=== PATIENT | female | born 1940 | race Caucasian/White ===

== ENCOUNTER 2017-08-20 13:24 | Observation (INO) ==
[2017-08-20] MEDS ORDERED: predniSONE 20 MG TABLET PO ONE (13:34)
[2017-08-20] MEDS ORDERED: Ipratropium/Albuterol Neb 3 ML IH ONE (13:34)
--- NOTE | 2017-08-20 14:13 | Emergency Department Note ---
Disposition Clinical Impression: Generalized weakness, Dehydration, Acute exacerbation of chronic obstructive airways disease Benzodiazepine withdrawal Qualifiers: Complication of substance-induced condition: with unspecified complication Qualified Code(s): F13.239 - Sedative, hypnotic or anxiolytic dependence with withdrawal, unspecified Disposition: Admitted As Inpatient Condition: Fair Time of Disposition: 16:10 SOB HPI - General Chief Complaint: ED Shortness of Breath/Dyspnea Stated Complaint: rudy Time Seen by Provider: 08/20/17 14:10 Source: family, EMS Limitations: no limitations Nursing Notes Reviewed: Yes Vital Signs Reviewed: Yes - History of Present Illness 76-year-old female history of COPD, presents complaining of generalized weakness shortness of breath nausea with some emesis in the last couple days. Her son is her historian she is alert and oriented 3 and give some history, she reports some productive cough some urinary frequency. Patient states that she has had increased confusion, is more shaky. Patient is oxygen dependent at baseline on 3 L stage IV end-stage COPD Pt Subjective Complaint: shortness of breath Onset (ago): day(s) (3) Severity: moderate Consistency/Duration: intermittent Improves with: nothing Worsens with: nothing Associated symptoms: Denies: chest pain, pain with inspiration, fever, cough, wheezing, sputum production, orthopnea, polyuria Treatment prior to arrival: none Cough present: No Cough Frequency: Intermittent Sputum production: Yes Sputum Amount: None - Related Data Home Medications Medication Instructions Recorded Confirmed Ergocalciferol (VITAMIN D2) 50,000 unit PO SA 07/04/15 08/20/17 [Vitamin D2] HYDROcodone/Acet 5/325 mg [[place] 1 tab PO Q6H PRN 07/04/15 08/20/17 5-325 mg] Sertraline [Zoloft] 50 mg PO DAILY 07/04/15 08/20/17 Umeclidinium [place] [Incruse 62.5 mcg IH DAILY 07/04/15 08/20/17 Ellipta] Albuterol Sulfate [Albuterol 2 puff IH Q4H PRN 08/20/17 08/20/17 Inhaler] Calcitonin,[place],Synthetic 1 spray NS DAILY 08/20/17 08/20/17 [Calcitonin-[place]] Fluticasone Propionate Nasal 50 mcg NS DAILY PRN 08/20/17 08/20/17 [Flonase] Fluticasone/Vilanterol [Breo 1 each IH DAILY 08/20/17 08/20/17 Ellipta 200-25 Mcg INH] HydrOXYzine 10 mg PO TID PRN 08/20/17 08/20/17 Meloxicam [Mobic] 7.5 mg PO DAILY 08/20/17 08/20/17 Omeprazole [PriLOSEC] 20 mg PO DAILY 08/20/17 08/20/17 Oxygen 4 l NS AD 08/20/17 08/20/17 Theophylline Anhydrous [[place]-24] 100 mg PO DAILY 08/20/17 08/20/17 Allergies Allergy/AdvReac Type Severity Reaction Status Date / Time No Known Allergies Allergy Verified 07/04/15 14:51 All systems ED: reviewed and negative except as stated. Review of Systems: As Per HPI Constitutional: Reports: weakness. Denies: fever, chills Eyes: Denies: eye pain ENT ED: Denies: ear pain Cardiovascular: Denies: chest pain Respiratory: Reports: as per HPI, cough, dyspnea. Denies: wheezes Gastrointestinal: Denies: abdominal pain, nausea, vomiting Genitourinary: Reports: as per HPI, frequency Musculoskeletal: Denies: back pain, neck pain Integumentary: Denies: rash Neurological: Denies: headache, weakness, numbness, paresthesias Past Medical History - Past Medical History Attestation: Yes The following information was validated with the patient. Source: patient Medical history: Reports: COPD Psychiatric history: Reports: anxiety - Social History Smoking Status: Former smoker Smokeless Tobacco Status: No Alcohol use: Reports: none Drug use: Reports: none Physical Exam Constitutional: Shaky thin and frail cachectic elderly female, mildly tachypneic appears in mild respiratory distress Eyes: PERRLA, sclera anicteric ENT & Mouth: M membranes dry Neck: normal inspection, neck is supple Resp: Prolonged expiratory phase, diminished lung sounds bilaterally, tachypneic CV: RRR, no m/g/r GI: normal inspection, soft, no guarding or rigidity Neuro: A&O3, CNII-XII grossly intact, BELLE Skin: on limited exam, skin intact with no rashes or lesions - General Limitations: no limitations General appearance: alert, in no apparent distress Course Course Narrative: 76-year-old with shortness of breath weakness, concern for possible sepsis, she is mildly tachycardic, will check full septic workup including CBC BMP blood cultures lactate, given 3 duo nebs and oral steroids, plan for admission given the patient's tenuous status and concerning symptoms including altered mental state elderly cachectic appearing, will reassess - Reevaluation(s) Reevaluation #1: Additional history from the family who is at bedside, they state that she is recently weaned off Ativan 4 days ago, given some element of delirium and agitation, we will give 0.5 IV of Ativan, also a 500 mL of fluid, patient's labwork and imaging was essentially negative, likely she is dehydration and acute altered mental status, and possible benzodiazepine withdrawal, plan for admission to hospital service [facility] nurse practitioner accepted the patient. Time: 16:20 Vital Signs Temperature 98.3 F 08/20/17 13:27 Pulse Rate 95 08/20/17 13:27 Respiratory Rate 16 08/20/17 13:27 Blood Pressure 157/99 08/20/17 13:27 O2 Sat by Pulse Oximetry 86 08/20/17 13:27 Temperature 98.3 F 08/20/17 13:27 Pulse Rate 100 08/20/17 16:32 Respiratory Rate 22 08/20/17 16:32 Blood Pressure 128/75 08/20/17 16:32 O2 Sat by Pulse Oximetry 93 08/20/17 16:32 Oxygen Delivery Oxygen Delivery Simple Mask Shortness of Breath/Dyspnea - Differential Diagnosis Likely: acute exacerbation of chronic obstructive airways disease, congestive heart failure - Medical Records Medical records reviewed: Yes I reviewed the patient's medical records. - Lab Data Lab results reviewed: Yes I reviewed the patient's lab results. Result diagrams: 08/20/17 13:59 08/20/17 13:59 Lab Results 08/20/17 08/20/17 08/20/17 Range/Units 13:59 13:59 13:59 WBC 5.8 (4.3-11.1) K/mcL RBC 3.95 (3.82-4.97) M/mcL Hgb 12.2 (11.5-15.4) g/dL Hct 37.9 (35.3-44.9) % MCV 95.9 (83.0-100.0) fL MCH 30.9 (28.0-33.3) pg MCHC 32.2 (31.6-35.5) g/dL RDW 13.2 (11.5-14.5) % Plt Count 192 (140-400) K/mcL MPV 10.2 (9.4-12.4) fL Immature Gran % 0.2 (0-4) % Seg Neutrophils % 73.2 % Lymphocytes % 19.3 % Monocytes % 6.7 % Eosinophils % 0.3 % Basophils % 0.3 % Neutrophils # 4.2 (1.6-8.9) K/mcL Lymphocytes # 1.1 (0.6-4.6) K/mcL Monocytes # 0.4 (0.0-1.3) K/mcL Eosinophils # 0.0 (0.0-0.6) K/mcL Basophils # 0.0 (0.0-0.2) K/mcL PT 11.0 (9.4-12.1) Seconds INR 1.0 Sodium 136 (136-145) mEq/L Potassium 4.4 (3.5-4.5) mEq/L Chloride 94 L (98-109) mEq/L Carbon Dioxide 34 H (19-29) mEq/L BUN 15 (7-20) mg/dL Creatinine 0.79 (0.57-1.11) mg/dL Est GFR ( Amer) > 60 (> 60) Est GFR (Non-Af Amer) > 60 (> 60) BUN/Creatinine Ratio 19 (6-26) Glucose 88 (70-99) mg/dL Calculated Osmolality 282 (280-300) Lactic Acid (0.5-2.2) mmol/L Calcium 10.4 (8.6-10.8) mg/dL Phosphorus 2.6 (2.3-4.7) mg/dL Magnesium 1.6 (1.6-2.6) mg/dL Total Bilirubin 0.6 (0.2-1.2) mg/dL Direct Bilirubin 0.3 (0.0-0.5) mg/dL Indirect Bilirubin 0.3 (0.0-1.2) mg/dL AST 42 H (5-34) Units/L ALT 19 (0-55) Units/L Alkaline Phosphatase 74 (38-126) Units/L Troponin I (0-0.03) ng/mL B-Natriuretic Peptide (0-100) pg/mL Serum Total Protein 8.5 H (6.0-8.3) g/dL Albumin 3.9 (3.5-5.0) g/dL Globulin 4.6 H (2.4-3.5) g/dL Albumin/Globulin Ratio 0.8 L (1.1-2.2) Urine Color (Yellow) Urine Clarity (Clear) Urine pH (5.0-8.0) pH Units Ur Specific [place] (1.010-1.025) Urine Protein (Neg-Trace) mg/dL Urine Glucose (UA) (Normal) mg/dL Urine Ketones (Negative) mg/dL Urine Blood (Negative) Urine Nitrite (Negative) Urine Bilirubin (Negative) Urine Urobilinogen (Normal) mg/dL Ur Leukocyte Esterase (Negative) Ur Culture Indicated? (NO) 08/20/17 08/20/17 08/20/17 Range/Units 13:59 13:59 13:59 WBC (4.3-11.1) K/mcL RBC (3.82-4.97) M/mcL Hgb (11.5-15.4) g/dL Hct (35.3-44.9) % MCV (83.0-100.0) fL MCH (28.0-33.3) pg MCHC (31.6-35.5) g/dL RDW (11.5-14.5) % Plt Count (140-400) K/mcL MPV (9.4-12.4) fL Immature Gran % (0-4) % Seg Neutrophils % % Lymphocytes % % Monocytes % % Eosinophils % % Basophils % % Neutrophils # (1.6-8.9) K/mcL Lymphocytes # (0.6-4.6) K/mcL Monocytes # (0.0-1.3) K/mcL Eosinophils # (0.0-0.6) K/mcL Basophils # (0.0-0.2) K/mcL PT (9.4-12.1) Seconds INR Sodium (136-145) mEq/L Potassium (3.5-4.5) mEq/L Chloride (98-109) mEq/L Carbon Dioxide (19-29) mEq/L BUN (7-20) mg/dL Creatinine (0.57-1.11) mg/dL Est GFR ( Amer) (> 60) Est GFR (Non-Af Amer) (> 60) BUN/Creatinine Ratio (6-26) Glucose (70-99) mg/dL Calculated Osmolality (280-300) Lactic Acid 1.1 (0.5-2.2) mmol/L Calcium (8.6-10.8) mg/dL Phosphorus (2.3-4.7) mg/dL Magnesium (1.6-2.6) mg/dL Total Bilirubin (0.2-1.2) mg/dL Direct Bilirubin (0.0-0.5) mg/dL Indirect Bilirubin (0.0-1.2) mg/dL AST (5-34) Units/L ALT (0-55) Units/L Alkaline Phosphatase (38-126) Units/L Troponin I 0.00 (0-0.03) ng/mL B-Natriuretic Peptide 14 (0-100) pg/mL Serum Total Protein (6.0-8.3) g/dL Albumin (3.5-5.0) g/dL Globulin (2.4-3.5) g/dL Albumin/Globulin Ratio (1.1-2.2) Urine Color (Yellow) Urine Clarity (Clear) Urine pH (5.0-8.0) pH Units Ur Specific [place] (1.010-1.025) Urine Protein (Neg-Trace) mg/dL Urine Glucose (UA) (Normal) mg/dL Urine Ketones (Negative) mg/dL Urine Blood (Negative) Urine Nitrite (Negative) Urine Bilirubin (Negative) Urine Urobilinogen (Normal) mg/dL Ur Leukocyte Esterase (Negative) Ur Culture Indicated? (NO) 08/20/17 Range/Units 15:00 WBC (4.3-11.1) K/mcL RBC (3.82-4.97) M/mcL Hgb (11.5-15.4) g/dL Hct (35.3-44.9) % MCV (83.0-100.0) fL MCH (28.0-33.3) pg MCHC (31.6-35.5) g/dL RDW (11.5-14.5) % Plt Count (140-400) K/mcL MPV (9.4-12.4) fL Immature Gran % (0-4) % Seg Neutrophils % % Lymphocytes % % Monocytes % % Eosinophils % % Basophils % % Neutrophils # (1.6-8.9) K/mcL Lymphocytes # (0.6-4.6) K/mcL Monocytes # (0.0-1.3) K/mcL Eosinophils # (0.0-0.6) K/mcL Basophils # (0.0-0.2) K/mcL PT (9.4-12.1) Seconds INR Sodium (136-145) mEq/L Potassium (3.5-4.5) mEq/L Chloride (98-109) mEq/L Carbon Dioxide (19-29) mEq/L BUN (7-20) mg/dL Creatinine (0.57-1.11) mg/dL Est GFR ( Amer) (> 60) Est GFR (Non-Af Amer) (> 60) BUN/Creatinine Ratio (6-26) Glucose (70-99) mg/dL Calculated Osmolality (280-300) Lactic Acid (0.5-2.2) mmol/L Calcium (8.6-10.8) mg/dL Phosphorus (2.3-4.7) mg/dL Magnesium (1.6-2.6) mg/dL Total Bilirubin (0.2-1.2) mg/dL Direct Bilirubin (0.0-0.5) mg/dL Indirect Bilirubin (0.0-1.2) mg/dL AST (5-34) Units/L ALT (0-55) Units/L Alkaline Phosphatase (38-126) Units/L Troponin I (0-0.03) ng/mL B-Natriuretic Peptide (0-100) pg/mL Serum Total Protein (6.0-8.3) g/dL Albumin (3.5-5.0) g/dL Globulin (2.4-3.5) g/dL Albumin/Globulin Ratio (1.1-2.2) Urine Color Yellow (Yellow) Urine Clarity Clear (Clear) Urine pH 8.0 (5.0-8.0) pH Units Ur Specific [place] 1.014 (1.010-1.025) Urine Protein Negative (Neg-Trace) mg/dL Urine Glucose (UA) Normal (Normal) mg/dL Urine Ketones Negative (Negative) mg/dL Urine Blood Negative (Negative) Urine Nitrite Negative (Negative) Urine Bilirubin Negative (Negative) Urine Urobilinogen Normal (Normal) mg/dL Ur Leukocyte Esterase Negative (Negative) Ur Culture Indicated? NO (NO) - Radiology Data Radiology results reviewed: Yes I reviewed the patient's radiology results. Chest X-Ray 08/20/17 13:33 IMPRESSION: COPD and likely superimposed fibrosis. No acute cardiopulmonary process. D/ / 08/20/2017 15:13:06 Klaus Baptiste MD / yulia Interpreting Provider: Klaus Baptiste MD Head CT 08/20/17 13:34 IMPRESSION: Mild small vessel ischemic changes bilaterally without acute abnormality otherwise Limited exam due to motion D/ / Darwin Velarde / Darwin Velarde Interpreting Provider: Darwin Velarde - EKG Data EKG attestation: Yes I reviewed and interpreted this EKG. EKG shows normal: Reports: sinus rhythm (89 bpm NM 153 QRS 88 QTC [address] segment elevations or depressions or line artifact unchangeable previous EKG in 2013) Attestation Statement - Attestation Attestation: I examined this patient and my medical decision-making was reviewed with the Resident Physician. I agree with the documented findings, disposition and treatment plan as described except to the extent set forth below. Patient presents to the emergency department with a chief complaint of shakiness , cough, and altered mental status. Family is concerned for pneumonia versus a UTI. Cough is harsh of the normal. Positive phlegm production. No fever. Exam shows a cachectic female with tachypnea. Decreased air exchange. Plan. Altered mental status workup. Steroids and nebs. Likely admission. Patient family now at bedside states she was recently weaned off her benzodiazepines. Workup is UNREMARKABLE. She does have a COPD exacerbation. She is admitted to medicine.
[2017-08-20 14:16] LABS: Basophils % 0.3 %; Eosinophils % 0.3 %; Hematocrit 37.9 % (35.3-44.9); Hemoglobin 12.2 g/dL (11.5-15.4); Immature Granulocytes % 0.2 % (0-4); Lymphocytes # 1.1 K/mcL (0.6-4.6); Lymphocytes % 19.3 %; Mean Corpuscular HGB Conc 32.2 g/dL (31.6-35.5); Mean Corpuscular Hemoglobin 30.9 pg (28.0-33.3); Mean Corpuscular Volume 95.9 fL (83.0-100.0); Mean Platelet Volume 10.2 fL (9.4-12.4); Monocytes # 0.4 K/mcL (0.0-1.3); Monocytes % 6.7 %; Neutrophils # 4.2 K/mcL (1.6-8.9); Platelet Count 192 K/mcL (140-400); Red Blood Count 3.95 M/mcL (3.82-4.97); Red Cell Distribution Width 13.2 % (11.5-14.5); Segmented Neutrophils % 73.2 %
[2017-08-20 14:31] LABS: Blood Urea Nitrogen 15 mg/dL (7-20); Carbon Dioxide 34 mEq/L (19-29); Chloride 94 mEq/L (98-109); Potassium 4.4 mEq/L (3.5-4.5); Sodium 136 mEq/L (136-145)
[2017-08-20 14:32] LABS: Alanine Aminotransferase 19 Units/L (0-55); Albumin 3.9 g/dL (3.5-5.0); Albumin/Globulin Ratio 0.8 (1.1-2.2); Alkaline Phosphatase 74 Units/L (38-126); Aspartate Amino Transferase 42 Units/L (5-34); BUN/Creatinine Ratio 19 (6-26); Bilirubin,Direct 0.3 mg/dL (0.0-0.5); Bilirubin,Indirect 0.3 mg/dL (0.0-1.2); Bilirubin,Total 0.6 mg/dL (0.2-1.2); Calcium 10.4 mg/dL (8.6-10.8); Globulin 4.6 g/dL (2.4-3.5); Glucose 88 mg/dL (70-99); Magnesium 1.6 mg/dL (1.6-2.6); Osmolality,Calculated 282 (280-300); Phosphorous 2.6 mg/dL (2.3-4.7); Total Protein 8.5 g/dL (6.0-8.3); eGFR For African Americans > 60 (> 60); eGFR For Non-African Americans > 60 (> 60)
[2017-08-20 15:35] LABS: Bilirubin,Urine Negative (Negative); Blood,Urine Negative (Negative); Clarity,Urine Clear (Clear); Color,Urine Yellow (Yellow); Glucose,Urine (UA) Normal (Normal); Ketones,Urine Negative (Negative); Leukocyte Esterase,Urine Negative (Negative); Nitrite,Urine Negative (Negative); Protein,Urine Negative (Neg-Trace); Specific Gravity,Urine 1.014 (1.010-1.025); Urobilinogen,Urine Normal (Normal)
[2017-08-20] MEDS ORDERED: *HR* LORazepam 2 MG/ML VIAL IVP ONE (15:43)
[2017-08-20] MEDS ORDERED: 0.9 % Sodium Chloride 500 ML IVC ONE (16:08)
[2017-08-20] MEDS ORDERED: Naloxone 0.4 MG/ML INJ IVP PRN (21:46)
[2017-08-20] MEDS ORDERED: Acetaminophen 325 MG TABLET PO PRN (21:46)
[2017-08-20] MEDS ORDERED: Fluticasone Propionate Nasal 50 MCG/SPRAY BOTTLE NS PRN (21:51)
[2017-08-20] MEDS ORDERED: Temazepam 15 MG CAPSULE PO PRN (22:52)
--- NOTE | 2017-08-20 23:46 | Internal Med History&Physical ---
Date of Encounter: 08/21/17 Time of Encounter: 21:00 Assessment and Plan (1) Acute exacerbation of chronic obstructive airways disease Current visit: Yes Status: Chronic Patient presents with SOB/dyspnea most likely related to acute exacerbation of COPD. Patient reports smoking 1 PPD for >30 years and quitting 20 years ago. Will continue patient's inhalers and add DuoNebs QID. Supplemental O2 with titration and continuous SpO2 monitoring. Monitor patient and VS. (2) Benzodiazepine withdrawal Current visit: Yes Status: Acute Patient taken off of long-term Ativan use four days ago and placed on hydroxyzine for anxiety. Patient exhibits mild shaking on examination but appears alert and oriented with intact neurological status. Patient states she is feeling better since first coming to ED. Continue hydroxyzine. Monitor patient for signs of increasing agitation and anxiety. Will consider very low dose of Ativan if necessary. Patient placed on continuous cardiac telemetry. Qualifiers: Complication of substance-induced condition: with unspecified complication Qualified Code(s): F13.239 - Sedative, hypnotic or anxiolytic dependence with withdrawal, unspecified (3) Generalized weakness Current visit: Yes Status: Acute Acute weakness of bilateral LEs with ambulation. Falls/safety precautions. PT/ OT consults ordered to assess for ambulation strength and stability. (4) Dehydration Current visit: Yes Status: Acute Patient presents with acute dehydration. IV 0.9 NS @ 75 mL/HR. Monitor f/u labs for electrolyte status. (5) Malnutrition Current visit: Yes Status: Acute Patient presents with BMI of 13.8 and appear malnourished on examination. Nutrition consult ordered for PO supplementation d/t protein-calorie malnutrition. Qualifiers: Malnutrition type: protein-calorie malnutrition Protein-calorie malnutrition severity: unspecified severity Qualified Code(s): E46 - Unspecified protein-calorie malnutrition (6) GERD (gastroesophageal reflux disease) Current visit: Yes Status: Chronic Hx of chronic GERD. IVP Protonix 40 mg BID. IVP Zofran Q6 PRN for nausea. Qualifiers: Esophagitis presence: esophagitis presence not specified Qualified Code(s) : K21.9 - Gastro-esophageal reflux disease without esophagitis (7) Osteoporosis Current visit: Yes Status: Chronic Hx of chronic osteoporosis. Continue patient's meloxicam. Qualifiers: Osteoporosis type: unspecified Presence of current pathological fracture: unspecified Qualified Code(s): M81.0 - Age-related osteoporosis without current pathological fracture (8) DVT prophylaxis Current visit: Yes Status: Acute Heparin 5,000 units SQ Q12 for DVT prophylaxis. Internal Medicine - H&P: HPI Chief complaint: SOB/Dyspnea Admitted From: Emergency Dept Plans for Post Hospital Care: Home History of present illness: Ms. Gutiérrez is a 76 year old female with medical history of COPD, GERD, dementia, and osteoporosis reports from the ED with chief complaint of SOB, dyspnea, shakiness, and dizziness for the past 4 days. Patient also reports difficulty sleeping for past two days. Family reports the patient was taken off of her Ativan four days ago after long-term use. She was started on hydroxyzine instead. Patient reports she uses O2 at home @ 3L. She also reports urinary frequency, occasional cough with clear sputum production, and weakness in LEs. States she has hx of pneumonia. Patient denies recent illness, , chills, nausea , vomiting, diarrhea, constipation, abdominal pain, chest pain, palpitations, unusual bleeding, changes in vision, presyncope, or syncope. Past Med Surg Social Fam HX - Past Medical History Source: patient, old records reviewed Medical history: COPD, dementia, osteoporosis Psychiatric history: anxiety - Past Surgical History Surgical History: orthopedic, other - Social History Smoking Status: Former smoker Packs per day: 1 PPD - Reports quitting 20 years ago Smokeless Tobacco Status: No Alcohol use: none Drug use: none Current living situation: Home Activity Level: Uses cane/walker Recent Out of Country Travel Within the Last 8 Weeks: No Exposure or Possible Exposure to Illness During Travel: No - Family History Mother Race: Family Member Ethnicity: Non- Living Status: Age at : 79 Cause of : Alzheimer's disease Hx Family Neurologic Disorders: Yes (Alzheimer's disease) Father History Unknown: Yes Race: Family Member Ethnicity: Non- Living Status: Age at : 40 Cause of : Shot by someone Brother Race: Family Member Ethnicity: Non- Living Status: Still Living Sister History Unknown: Yes Race: Family Member Ethnicity: Non- Living Status: Still Living Internal Medicine - H&P: Meds Ergocalciferol (VITAMIN D2) [Vitamin D2] 50,000 unit PO SA 07/04/15 [History] HYDROcodone/Acet 5/325 mg [[place] 5-325 mg] 1 tab PO Q6H PRN 07/04/15 [History] Sertraline [Zoloft] 50 mg PO DAILY 07/04/15 [History] Umeclidinium [place] [Incruse Ellipta] 62.5 mcg IH DAILY 07/04/15 [History] Albuterol Sulfate [Albuterol Inhaler] 2 puff IH Q4H PRN 08/20/17 [History] Calcitonin,[place],Synthetic [Calcitonin-[place]] 1 spray NS DAILY 08/20/17 [ History] Fluticasone Propionate Nasal [Flonase] 50 mcg NS DAILY PRN 08/20/17 [History] Fluticasone/Vilanterol [Breo Ellipt[place] 200-25 Mcg INH] 1 each IH DAILY 08/20/17 [ History] HydrOXYzine 10 mg PO TID PRN 08/20/17 [History] Meloxicam [Mobic] 7.5 mg PO DAILY 08/20/17 [History] Omeprazole [PriLOSEC] 20 mg PO DAILY 08/20/17 [History] Oxygen 4 l NS AD 08/20/17 [History] Theophylline Anhydrous [[place]-24] 100 mg PO DAILY 08/20/17 [History] 3 Allergy/AdvReac Type Severity Reaction Status Date / Time No Known Allergies Allergy Verified 07/04/15 14:51 All Systems PM: A 10-system review of systems was performed and is negative for pertinent findings except as documented above in the HPI. - Constitutional Constitutional: as per HPI, weakness, no chills, no fever(s), no night sweats - EENT Eyes: no change in vision, no discharge, no pain, no photophobia Ears: no ear discharge, no ear pain, no tinnitus Nose, mouth and throat: no dysphagia, no nasal discharge, no neck pain, no sore throat - Breasts Breasts: as per HPI - Cardiovascular Cardiovascular ROS IM: no chest pain, no diaphoresis, no dyspnea, no lightheadedness, no palpitations, no syncope - Respiratory Respiratory: as per HPI, cough, no dyspnea, no wheezing, no excessive phlegm production - Gastrointestinal Gastrointestinal: no abdominal pain, no diarrhea, no hematemesis, no hematochezia, no melena, no nausea, no vomiting - Genitourinary Genitourinary: no change in urinary stream, no dysuria, no flank pain, no hematuria Menstruation: as per HPI - Musculoskeletal Musculoskeletal ROS IM: no numbness, no tingling - Integumentary Integumentary IM: no rash, no unusual bruising - Neurological Neurological ROS: no confusion, no convulsions, no focal weakness, no numbness, no tingling, no tremor(s) - Psychiatric Psychiatric: as per HPI - Endocrine Endocrine IM: as per HPI - Hematologic/Lymphatic Hematologic/Lymphatic: no easy bruising - Allergic/Immunologic Allergic/Immunologic: as per HPI - Constitutional Vitals: Temp Pulse Resp BP Pulse Ox 98.0 F 104 18 106/65 89 08/20/17 23:09 08/20/17 23:09 08/20/17 23:09 08/20/17 23:09 08/20/17 23:09 General appearance: Present: cooperative, mild distress, A&O X 3, pleasant, underweight, answers questions appropriately - Head Head exam: Present: atraumatic, normocephalic - Eye Eye exam: Present: PERRL, conjuntiva pink, sclera anicteric Pupils: Present: PERRL - ENT ENT exam: Present: normal exam, normal external ear exam - Neck Neck exam general surgery: Present: normal inspection, supple, trachea midline. Absent: lymphadenopathy - Respiratory Respiratory exam: Present: CTAB. Absent: accessory muscle use, rales, rhonchi, wheezes - Cardiovascular Cardiovascular exam: Present: RRR, +S1, +S2. Absent: diastolic murmur, gallop, rubs, systolic murmur - GI/Abdominal GI/Abdominal exam: Present: normal bowel sounds, soft, no peritoneal signs. Absent: distended, tenderness - Rectal Rectal exam: Present: deferred - Additional comments: exam deferred. - Extremities Exam Extremities exam: Present: warm, radial pulses palpable and symmetrical. Absent : calf tenderness, cyanotic, pedal edema - Back Exam Back exam: Present: normal inspection - Neurological Exam Neurological exam: Present: CN II-XII intact, oriented X3, no focal deficits. Absent: pronater drift, facial droop, speech deficit - Psychiatric Psychiatric exam: Present: anxious - Skin Skin exam: Present: dry, intact Internal Med - H&P Results - Labs CBC & Chem 7: 08/20/17 13:59 08/20/17 13:59 - Diagnostic Studies Chest x-ray Additional comments: Impressions Chest X-Ray 08/20/17 13:33 IMPRESSION: COPD and likely superimposed fibrosis. No acute cardiopulmonary process. D/ / 08/20/2017 15:13:06 Klaus Baptiste MD / yulia Interpreting Provider: Klaus Baptiste MD CT scan - head Additional comments: Impressions Head CT 08/20/17 13:34 IMPRESSION: Mild small vessel ischemic changes bilaterally without acute abnormality otherwise Limited exam due to motion D/ / Darwin Velarde / Darwin Velarde Interpreting Provider: Darwin Veladre
--- NOTE | 2017-08-20 23:57 | Event Note ---
Date of Encounter: 08/20/17 Time of Encounter: 23:43 I have personally seen and examined the patient and discuss the care plan with advanced nurse practitioner. Patient presented with altered mental status dyspnea. As I saw her she seems quite comfortable sitting in the bed able to carry on conversation without any difficulty. Her metabolic panels including CBC CMP and UA are unremarkable. Apparently she used to smoke in the past. On lung examination breath sounds are shallow but no abnormal added sounds. No peripheral edema abdomen soft nontender no organomegaly bowel sounds active. We will start her on nebulizer treatment for her dyspnea. Apparently patient was taken off the benzodiazepine abruptly but it has been 4-5 days already. I did a brief neurologic examination. I did not notice any pronator drift and cranial nerves are intact plantar's are downward bilaterally. Gait deferred at this point. She will need PT OT evaluation in the morning and if remains stable condition with discharge home. I think she is pretty much near the end of her benzodiazepine withdrawal which could be a reason for her confusion at home however at this point she does not need any further treatment. IV hydration would be a good idea
[2017-08-21] MEDS: 0.9 % Sodium Chloride 1,000 ML IVC SCH ×2 (00:59→12:31)
[2017-08-21 05:34] LABS: Hematocrit 31.6 % (35.3-44.9); Immature Granulocytes % 0.9 % (0-4); Lymphocytes # 0.8 K/mcL (0.6-4.6); Lymphocytes % 17.6 %; Mean Corpuscular HGB Conc 32.3 g/dL (31.6-35.5); Mean Corpuscular Hemoglobin 31.4 pg (28.0-33.3); Mean Corpuscular Volume 97.2 fL (83.0-100.0); Mean Platelet Volume 10.6 fL (9.4-12.4); Monocytes # 0.2 K/mcL (0.0-1.3); Monocytes % 3.8 %; Neutrophils # 3.5 K/mcL (1.6-8.9); Platelet Count 168 K/mcL (140-400); Red Blood Count 3.25 M/mcL (3.82-4.97); Red Cell Distribution Width 13.2 % (11.5-14.5); Segmented Neutrophils % 77.7 %
[2017-08-21 05:37] LABS: Hemoglobin 10.2 g/dL (11.5-15.4)
[2017-08-21 05:50] LABS: Hemoglobin A1C 5.4 %
[2017-08-21 05:56] LABS: Alanine Aminotransferase 14 Units/L (0-55); Albumin/Globulin Ratio 0.8 (1.1-2.2); Alkaline Phosphatase 55 Units/L (38-126); Aspartate Amino Transferase 33 Units/L (5-34); BUN/Creatinine Ratio 24 (6-26); Bilirubin,Total 0.4 mg/dL (0.2-1.2); Blood Urea Nitrogen 18 mg/dL (7-20); Calcium 9.4 mg/dL (8.6-10.8); Carbon Dioxide 29 mEq/L (19-29); Chloride 97 mEq/L (98-109); Chol/HDL Ratio 3.4 (0-4.9); Cholesterol 189 mg/dL (< 200); Globulin 3.8 g/dL (2.4-3.5); Glucose 127 mg/dL (70-99); HDL Cholesterol 56 mg/dL (40-59); LDL Cholesterol,Calculated 121 mg/dL (0-99); Osmolality,Calculated 283 (280-300); Potassium 4.6 mEq/L (3.5-4.5); Sodium 135 mEq/L (136-145); Total Protein 6.9 g/dL (6.0-8.3); Triglycerides 60 mg/dL (< 150); eGFR For African Americans > 60 (> 60); eGFR For Non-African Americans > 60 (> 60)
[2017-08-21 06:07] LABS: Albumin 3.1 g/dL (3.5-5.0)
[2017-08-21 06:16] LABS: Thyroid Stimulating Hormone 1.274 mcIU/mL (0.350-4.840)
[2017-08-21] MEDS: Pantoprazole 40 MG VIAL IVP SCH ×2 (06:50→17:37)
[2017-08-21] MEDS: *HR* Heparin 5,000 UNIT/ML VIAL SQ SCH ×2 (06:50→17:37)
[2017-08-21] MEDS: (Breo Ellipta 200-25 Mcg Inh) IH SCH (08:31)
[2017-08-21] MEDS: (Incruse Ellipta] 62.5 MCG) IH SCH (08:32)
[2017-08-21] MEDS ORDERED: Ondansetron ODT 4 MG TAB.RAPDIS SL PRN (12:07)
--- NOTE | 2017-08-21 15:41 | Internal Med Progress Note ---
Date of Encounter: 08/21/17 Time of Encounter: 13:30 - Assessment and plan (1) Acute exacerbation of chronic obstructive airways disease Current Visit: Yes Status: Chronic Assessment and plan: Patient presented to the emergency department with increasing shortness of breath and dyspnea, most likely related to acute exacerbation of COPD. Patient is a former smoker, quit 20 years ago. Patient appears to be in no respiratory distress her lungs are clear and diminished posteriorly. Continue inhalers and DuoNebs 4 times daily. Continue oxygen as needed to maintain sats greater than 92%. 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 No acute cardiopulmonary process. D/ / 08/20/2017 15:13:06 Klaus Baptiste MD / yulia Interpreting Provider: Klaus Baptiste MD (2) Benzodiazepine withdrawal Current Visit: Yes Status: Acute Assessment and plan: Pt has been being weaned from her Ativan due to new pharmacy regulations. She last had it filled on 07/25/17. She has had it filled infrequently throughout the year. Pt does appear to be shaking, however, when speaking to her PCP, this could be her baseline. Pt is not SOB and pt states that the hydroxyzine is helping her. She is also getting Restoril, which she will not be able to continue on discharge since she is already getting narcotic pain medication from PCP, so I will discontinue. Can treat with Clonidine patches, ordered for when pt needs one. Will monitor pts vitals and condition. Qualifiers: Complication of substance-induced condition: with unspecified complication Qualified Code(s): F13.239 - Sedative, hypnotic or anxiolytic dependence with withdrawal, unspecified (3) GERD (gastroesophageal reflux disease) Current Visit: Yes Status: Chronic Assessment and plan: Chronic. Continue home medications. Qualifiers: Esophagitis presence: esophagitis presence not specified Qualified Code(s) : K21.9 - Gastro-esophageal reflux disease without esophagitis (4) Osteoporosis Current Visit: Yes Status: Chronic Assessment and plan: Chronic. They continue to calcium and vitamin D. Qualifiers: Osteoporosis type: unspecified Presence of current pathological fracture: unspecified Qualified Code(s): M81.0 - Age-related osteoporosis without current pathological fracture (5) Malnutrition Current Visit: Yes Status: Acute Assessment and plan: Patient is cachectic, BMI is 11.8. Albumin is mildly decreased at 3.1. Nutrition consultation has been entered for recommendations for supplementation. Qualifiers: Malnutrition type: protein-calorie malnutrition Protein-calorie malnutrition severity: unspecified severity Qualified Code(s): E46 - Unspecified protein-calorie malnutrition (6) DVT prophylaxis Current Visit: Yes Status: Acute Assessment and plan: Heparin SQ - Time Spent With Patient less than 15 minutes - Subjective Interval history: Patient was seen and assessed at bedside at 1330. Patient states that she feels better than she down arrival. She denies any chest pain. She does, however, report posterior neck pain that is not new for her. Patient does appear to be having anxiety, however, after speaking with her primary care provider, this does seem to be her baseline. Her primary care provider and I had a lengthy discussion regarding her benzodiazepine prescription. Patient was slowly weaned from Ativan due to new pharmacy regulations. Patient already takes [place], so she was not able to continue taking Ativan, as well. [facility] report shows that patient has had the Ativan filled very infrequently in 2017, last time being filled July 25. Primary nurse reports that multiple family members had been requesting that the Ativan be restarted, there was no one in the room when I was there to discuss this. Patient is agreeable to going to half-way facility for rehabilitation, patient states that she would like to go to [place]. - Constitutional Vitals: Temp Pulse Resp BP Pulse Ox 97.8 F 99 16 105/59 93 08/21/17 15:00 08/21/17 15:00 08/21/17 15:27 08/21/17 15:00 08/21/17 15:27 General appearance: Present: cooperative, mild distress, A&O X 3, pleasant, underweight, answers questions appropriately - Head Head exam: Present: atraumatic, normal inspection, normocephalic - Eye Eye exam: Present: normal appearance, conjuntiva pink, sclera anicteric. Absent : nystagmus - Neck Neck exam general surgery: Present: normal inspection, supple, trachea midline. Absent: lymphadenopathy, tenderness - Respiratory Respiratory exam: Present: CTAB. Absent: accessory muscle use, chest wall tenderness, decreased breath sounds, rales, respiratory distress, rhonchi, wheezes - Cardiovascular Cardiovascular exam: Present: RRR, +S1, +S2. Absent: diastolic murmur, gallop, irregular rhythm, rubs, systolic murmur - GI/Abdominal GI/Abdominal exam: Present: normal bowel sounds, soft. Absent: distended, tenderness Additional comments: Abdomen is flat and soft. - Extremities Exam Extremities exam: Present: normal capillary refill, normal inspection, warm, radial pulses palpable and symmetrical. Absent: calf tenderness, cyanotic, pedal edema, tenderness - Neurological Exam Neurological exam: Present: alert, oriented X3, no focal deficits, pronater drift. Absent: altered, facial droop, speech deficit - Skin Skin exam: Present: dry, intact, normal color, warm. Absent: rash Internal Medicine: Result - Labs CBC & Chem 7: 08/21/17 04:31 08/21/17 04:31 Labs: Short CBC 08/21/17 Range/Units 04:31 WBC 4.4 (4.3-11.1) K/mcL Hgb 10.2 L D (11.5-15.4) g/dL Hct 31.6 L (35.3-44.9) % Plt Count 168 (140-400) K/mcL Neutrophils # 3.5 (1.6-8.9) K/mcL BMP 08/21/17 04:31 Sodium 135 L Potassium 4.6 H Chloride 97 L Carbon Dioxide 29 BUN 18 Creatinine 0.76 Glucose 127 H Calcium 9.4 Liver Function 08/21/17 Range/Units 04:31 Total Bilirubin 0.4 (0.2-1.2) mg/dL AST 33 (5-34) Units/L ALT 14 (0-55) Units/L Alkaline Phosphatase 55 (38-126) Units/L Albumin 3.1 L D (3.5-5.0) g/dL - ABG Interpretation ABG results: PT/INR, D-dimer PT 11.0 Seconds (9.4-12.1) 08/20/17 13:59 Consult Discharge Plan - Plan Referrals: Shae Martinez, [facility] ATTENDANT [Primary Care Provider] -
[2017-08-21] MEDS ORDERED: CloNIDine Patch 0.1 MG PATCH (WEEKLY) TD SCH (16:00)
[2017-08-21] MEDS ORDERED: CloNIDine Patch 0.1 MG PATCH (WEEKLY) TD PRN (16:11)
[2017-08-21] MEDS: *HR* HYDROcodone/Acet 5/325 mg TABLET PO PRN ×2 (16:32→22:00)
--- NOTE | 2017-08-21 20:05 | Electrocardiograph Report ---
[place] [id number] Test Date: 2017-08-20 Pat Name: Kait Gutiérrez Department: 103 Room: 3B38 Gender: F Data Reduction Technician: : [id number] Requested By: Nathan Marie Order Number: [id number] Reading MD: Pieter Verdugo MD Measurements Intervals [place] Rate: 89 P: 80 KS: 153 QRS: 250 QRSD: 88 T: 55 QT: 349 QTc: 395 Interpretive Statements SINUS RHYTHM MARKED RIGHT AXIS DEVIATION BASELINE ARTIFACT Electronically Signed On 08-21-2017 20:04:07 EDT by Pieter Verdugo MD
[2017-08-22] MEDS: 0.9 % Sodium Chloride 1,000 ML IVC SCH (02:00)
[2017-08-22 04:28] LABS: Basophils % 0.1 %; Eosinophils % 0.6 %; Hemoglobin 9.8 g/dL (11.5-15.4); Immature Granulocytes % 0.1 % (0-4); Lymphocytes # 2.2 K/mcL (0.6-4.6); Mean Corpuscular HGB Conc 30.6 g/dL (31.6-35.5); Mean Corpuscular Hemoglobin 30.6 pg (28.0-33.3); Mean Platelet Volume 10.5 fL (9.4-12.4); Monocytes # 0.6 K/mcL (0.0-1.3); Monocytes % 8.4 %; Neutrophils # 4.1 K/mcL (1.6-8.9); Platelet Count 154 K/mcL (140-400); Red Cell Distribution Width 13.4 % (11.5-14.5); Segmented Neutrophils % 58.8 %
[2017-08-22 04:51] LABS: BUN/Creatinine Ratio 26 (6-26); Blood Urea Nitrogen 21 mg/dL (7-20); Calcium 8.9 mg/dL (8.6-10.8); Carbon Dioxide 33 mEq/L (19-29); Chloride 103 mEq/L (98-109); Glucose 73 mg/dL (70-99); Osmolality,Calculated 288 (280-300); Sodium 138 mEq/L (136-145); eGFR For African Americans > 60 (> 60); eGFR For Non-African Americans > 60 (> 60)
[2017-08-22] MEDS: *HR* Heparin 5,000 UNIT/ML VIAL SQ SCH (06:17)
[2017-08-22] MEDS: Pantoprazole 40 MG VIAL IVP SCH (06:17)
[2017-08-22] MEDS: (Incruse Ellipta] 62.5 MCG) IH SCH (07:52)
[2017-08-22] MEDS: (Breo Ellipta 200-25 Mcg Inh) IH SCH (07:52)
[2017-08-22 07:59] LABS: VBG HCO3 36 mEq/L (21-27); VBG PCO2 98 mmHg (41-51); VBG PH 7.17 pH Units (7.32-7.42); VBG PO2 145 mmHg (25-50)
[2017-08-22] MEDS: *HR* HYDROcodone/Acet 5/325 mg TABLET PO PRN (08:45)
[2017-08-22] MEDS ORDERED: NON-FORMULARY MEDICATION 1 EACH EACH (Oxygen [Oxygen] 4 L) NS SCH (09:45)
[2017-08-22] MEDS ORDERED: CALCITONIN SALMON SYNTHETIC NS SCH (09:45)
[2017-08-22 10:33] LABS: VBG HCO3 36 mEq/L (21-27); VBG PCO2 95 mmHg (41-51); VBG PH 7.19 pH Units (7.32-7.42); VBG PO2 35 mmHg (25-50)
[2017-08-22 10:55] LABS: ABG Base Excess 5 mEq/L (-2 to 3); ABG HCO3 33 mEq/L (21-27); ABG Oxygen Saturation 95 % (95-98); ABG PCO2 68 mmHg (35-45); ABG PO2 89 mmHg (85-104); ABG TCO2 36 mEq/L (20-26)
--- NOTE | 2017-08-22 11:47 | Discharge Summary ---
Date of Encounter: 08/22/17 Time of Encounter: 09:30 - Discharge Diagnosis (1) Acute exacerbation of chronic obstructive airways disease Priority: Primary Status: Chronic Comments: Patient presented to the emergency department with increasing shortness of breath and dyspnea, most likely related to acute exacerbation of COPD, some could be due to increased anxiety. Patient is a former smoker, quit 20 years ago. Patient appears to be in no respiratory distress her lungs are clear and diminished posteriorly. She requires supplemental 02 to maintain sats, not above her normal baseline. Continue 02 at ECF . VBG ordered STAT in the ED on arrival, was drawn today with critical results. ABG drawn with more reasonable results, most likely at pt's baseline. She is in no distress, lungs are diminished with faint wheezing in [place]. Pt has improved over course of stay. Continue inhalers and DuoNebs 4 times daily at ECF. Continue oxygen as needed to maintain sats greater than 92%. 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 No acute cardiopulmonary process. D/ / 08/20/2017 15:13:06 Klaus Baptiste MD / yulia Interpreting Provider: Klaus Baptiste MD (2) Benzodiazepine withdrawal Priority: Secondary Status: Acute Comments: Pt appears to be stable. She has hydroxyzine. Pt was evaluated by Palliative Care for possible continuation of Ativan. Pt is not a candidate for Hospice. Zoloft has been increased to 75mg daily and I recommend and encourage titrating medication up to effectiveness. Pt has Clonidine patch prn which she has not needed. Will not continue on discharge due to hypotension. Pt was slowly weaned from Ativan to hydroxyzine by PCP. Family has expressed frustration and concern over pt not having ativan. We have discussed the guidelines for prescribing controlled medications with family and pt and feel that restarting it is not in the pt's best interest since it can not be continued once pt is discharged. Qualifiers: Complication of substance-induced condition: with unspecified complication Qualified Code(s): F13.239 - Sedative, hypnotic or anxiolytic dependence with withdrawal, unspecified (3) GERD (gastroesophageal reflux disease) Priority: Secondary Status: Chronic Comments: Chronic. Pt denies symptoms. Continue home medications. Qualifiers: Esophagitis presence: esophagitis presence not specified Qualified Code(s) : K21.9 - Gastro-esophageal reflux disease without esophagitis (4) Osteoporosis Priority: Secondary Status: Chronic Qualifiers: Osteoporosis type: unspecified Presence of current pathological fracture: unspecified Qualified Code(s): M81.0 - Age-related osteoporosis without current pathological fracture (5) Malnutrition Priority: Secondary Status: Chronic Comments: Pt was seen by nutrition while she has been inpt. Recommend supplements/shakes at [facility] for nutrition and weight gain. BMI 11.8. Qualifiers: Malnutrition type: protein-calorie malnutrition Protein-calorie malnutrition severity: unspecified severity Qualified Code(s): E46 - Unspecified protein-calorie malnutrition (6) DVT prophylaxis Priority: Secondary Status: Acute Comments: Heparin SQ - Discharge Medications Prescriptions: HYDROcodone/Acet 5/325 mg [[place] 5-325 mg] 1 tab PO Q6H PRN #8 tablet PRN Reason: Pain Home Medications: Ergocalciferol (VITAMIN D2) [Vitamin D2] 50,000 unit PO SA 07/04/15 [History] Sertraline [Zoloft] 50 mg PO DAILY 07/04/15 [History] Umeclidinium [place] [Incruse Ellipta] 62.5 mcg IH DAILY 07/04/15 [History] Albuterol Sulfate [Albuterol Inhaler] 2 puff IH Q4H PRN 08/20/17 [History] Calcitonin,[place],Synthetic [Calcitonin-[place]] 1 spray NS DAILY 08/20/17 [ History] Fluticasone Propionate Nasal [Flonase] 50 mcg NS DAILY PRN 08/20/17 [History] Fluticasone/Vilanterol [Breo Ellipta 200-25 Mcg INH] 1 each IH DAILY 08/20/17 [ History] HydrOXYzine 10 mg PO TID PRN 08/20/17 [History] Meloxicam [Mobic] 7.5 mg PO DAILY 08/20/17 [History] Omeprazole [PriLOSEC] 20 mg PO DAILY 08/20/17 [History] Oxygen 4 l NS AD 08/20/17 [History] Theophylline Anhydrous [Guevara-24] 100 mg PO DAILY 08/20/17 [History] HYDROcodone/Acet 5/325 mg [Kod[place] 5-325 mg] 1 tab PO Q6H PRN #8 tablet 08/22/17 [ Rx] Allergies/Adverse Reactions: 3 Allergy/AdvReac Type Severity Reaction Status Date / Time No Known Allergies Allergy Verified 07/04/15 14:51 Date of admission: 08/20/17 16:29 Primary care physician: Shae Martinez CNP Consults: 08/20/17 18:41 Consult to Touch Up Painter Hand [CONS] Routine Reason for SW Consult: possible needs at discharge 08/20/17 21:49 Consult to Physical Therapy [CONS] Routine Comment: Evaluate, develop and implement POC Reason for Consult: Patient states that she has difficulty ambulating and feeling steady on her feet. Please assess for strength, stability, ambulation and assistive needs for post-discharge planning. 08/20/17 21:50 Consult to Occupational Therapy [CONS] Routine Comment: Evaluate, develop and implement POC Reason for Consult: Patient states that she has difficulty ambulating and feeling steady on her feet. Please assess for strength, stability, ambulation and assistive needs for post-discharge planning. 08/20/17 21:55 Consult to Nutrition [CONS] Routine Comment: Consulting Provider: NUTRITION Reason for Dietary Consult: PO Supplementation 08/21/17 17:41 Consult to Palliative Care [CONS] Routine Comment: Consulting Provider: Palliative Care Renetta Reason for Consult: Family requesting consult for pain/anxiety control.Pt with COPD and chronic anxiety. Please see note. Time Notified: 17:42 Call Completed: Yes Discharging clinician: Destinee Guzmán Anticipated date of discharge: 08/22/17 - Patient Status Disposition: Transfer SNF Condition: Good Functional capacity at discharge: uses cane/walker Overall status at discharge: patient is progressing back to baseline - Discharge Instructions Follow Up With: Shae Martinez CNP [Primary Care Provider] - - Diet and Activity Activity: as per physical therapy, wear oxygen at all times Hospital course: Ms. Gutiérrez is a 76 year old female with past medical history of COPD, osteoporosis, GERD, anxiety. Patient is being sent to [facility] for physical therapy rehabilitation. See assessment and plan for hospital course. Patient' s vital signs are stable and within normal limits. Patient's labs are stable and at her baseline. Repeat potassium this morning was 4.9. She was given 15 g of Kayexalate. Lab will need to be redrawn tomorrow at the facility. Patient is appropriate and stable for discharge. - Time Spent with Patient Total time spent providing and/or coordinating discharge services: Less than 30 minutes - Constitutional Vitals: Temp Pulse Resp BP Pulse Ox 98.2 F 83 16 107/62 93 08/22/17 07:46 08/22/17 07:46 08/22/17 11:06 08/22/17 07:46 08/22/17 11:06 General appearance: Present: cooperative, mild distress, A&O X 3, pleasant, underweight, answers questions appropriately - Head Head exam: Present: atraumatic, normal inspection, normocephalic - Eye Eye exam: Present: normal appearance, conjuntiva pink, sclera anicteric - ENT ENT exam: Present: mucous membranes moist, normal exam, normal external ear exam - Neck Neck exam general surgery: Present: supple, trachea midline. Absent: lymphadenopathy, tenderness - Respiratory Respiratory exam: Present: decreased breath sounds, wheezes. Absent: accessory muscle use, rales, respiratory distress, rhonchi - Cardiovascular Cardiovascular exam: Present: RRR, +S1, +S2. Absent: diastolic murmur, gallop, rubs, systolic murmur - GI/Abdominal GI/Abdominal exam: Present: normal bowel sounds, soft, no peritoneal signs. Absent: distended, hepatomegaly, tenderness - Extremities Exam Extremities exam: Present: normal capillary refill, normal inspection, warm, radial pulses palpable and symmetrical. Absent: calf tenderness, cyanotic, pedal edema, tenderness - Neurological Exam Neurological exam: Present: alert, oriented X3, no focal deficits. Absent: facial droop, speech deficit - Skin Skin exam: Present: dry, intact, normal color, warm. Absent: rash
[2017-08-22 11:54] VITALS: BP 96/52
--- NOTE | 2017-08-22 12:29 | Physician Discharge Referral ---
ExtendedCare Referral Info Transfer To: [facility] Provider in Charge after Transfer: PCP Institutional Level of Care: Skilled - Diagnosis (1) Acute exacerbation of chronic obstructive airways disease Priority: Primary Status: Chronic (2) Benzodiazepine withdrawal Priority: Secondary Status: Acute (3) GERD (gastroesophageal reflux disease) Priority: Secondary Status: Chronic (4) Osteoporosis Priority: Secondary Status: Chronic (5) Malnutrition Priority: Secondary Status: Chronic (6) DVT prophylaxis Priority: Secondary Status: Acute Prognosis: Fair Aware of Diagnosis: Patient, Family Aware of Prognosis: Patient, Family - Transfer Medications Prescriptions: HYDROcodone/Acet 5/325 mg [[place] 5-325 mg] 1 tab PO Q6H PRN #8 tablet PRN Reason: Pain Home Medications: Ergocalciferol (VITAMIN D2) [Vitamin D2] 50,000 unit PO SA 07/04/15 [History] Sertraline [Zoloft] 50 mg PO DAILY 07/04/15 [History] Umeclidinium [place] [Incruse Ellipta] 62.5 mcg IH DAILY 07/04/15 [History] Albuterol Sulfate [Albuterol Inhaler] 2 puff IH Q4H PRN 08/20/17 [History] Calcitonin,[place],Synthetic [Calcitonin-[place]] 1 spray NS DAILY 08/20/17 [ History] Fluticasone Propionate Nasal [Flonase] 50 mcg NS DAILY PRN 08/20/17 [History] Fluticasone/Vilanterol [Breo Ellipta 200-25 Mcg INH] 1 each IH DAILY 08/20/17 [ History] HydrOXYzine 10 mg PO TID PRN 08/20/17 [History] Meloxicam [Mobic] 7.5 mg PO DAILY 08/20/17 [History] Omeprazole [PriLOSEC] 20 mg PO DAILY 08/20/17 [History] Oxygen 4 l NS AD 08/20/17 [History] Theophylline Anhydrous [Guevara-24] 100 mg PO DAILY 08/20/17 [History] HYDROcodone/Acet 5/325 mg [[place] 5-325 mg] 1 tab PO Q6H PRN #8 tablet 08/22/17 [ Rx] Allergies/Adverse Reactions: 3 Allergy/AdvReac Type Severity Reaction Status Date / Time No Known Allergies Allergy Verified 07/04/15 14:51 - Respiratory Orders Oxygen / L per min (3L, titrate as needed to maintain sats > 92%.) Smoking Cessation: Smoking cessation has been advised. For more information, call the [place] Tobacco Quit Line at 5-229-OBTF-NOW. - Lab Orders Lab Orders: U/A, Manohar 17, CXR yearly - Ancillary Orders May use pressure relief devices daily prn, May go on SCAR w/family/respon green party w /meds at nurse discretion PRN, May consult with Dentist, Production Line Manager, Pencil Sorter PRN - Advance Directives Code Status: Full Code - Mobility Orders Ambulate - Rehabiliation Orders Rehab Potential: Fair Rehab Orders: ROM Exercises, Evaluation for Physical Therapy, Evaluation for Occupational Therapy - Treatments Skin tear care topically daily PRN per policy, May check for fecal impaction rectally daily PRN - Diet Orders Regular CERTIFICATION: I certify that the transfer of the above named patient to an Extended Care Facility is necessary for the continuing treatment of the diagnosis listed. The above information is true and accurate reflection of patient's current condition. Confidential - Redisclosure prohibited without a patient's written consent.
--- NOTE | 2017-08-22 14:43 | Palliative - Consult Note ---
Date of Encounter: 08/22/17 Time of Encounter: 09:10 - Assessment and Plan (1) Back pain Status: Acute Assessment and plan: Patient is doing well with her Lonsdale, did recommended the treatment team to consider referral to the eventual pain specialists as he may have something to contribute to her back pain. Thus allowing her to come off the Lonsdale. Qualifiers: Back pain location: low back pain Chronicity: chronic Back pain laterality: midline Sciatica presence: without sciatica Qualified Code(s): M54.5 - Low back pain; G89.29 - Other chronic pain; G89.29 - Other chronic pain (2) Goals of care, counseling/discussion Status: Acute Assessment and plan: Patient wishes to be a full code. Discussion with patient and her son and daughter. ( both son and daughter vice president medical affairs) at this time and do not feel the patient is appropriate for hospice given her overall desires for aggressive care. He seems to agree. Cussed with her the various options to days pains and opioids in this new Era of strict prescribing. I basically told him that they are best bet to be able to have opioids and benzodiazepines is to be with hospice. Patient is clearly hospice eligible based on hypercapnic respiratory failure. However she wishes to remain very aggressive in her care and wants to have the option of coming to the hospital. I believe that she would not do well with hospice and have recommended against it at this time. She will be going to [facility], I did inform the family that they do have hospice there, there are further questions I asked them he time they like. (3) Anxiety about health Status: Acute Assessment and plan: I have recommended to the treatment team to increase the patient's Zoloft. And continue to avoid benzodiazepines. (4) Generalized weakness Status: Acute Assessment and plan: The patient will be going to [facility] for rehabilitation. Plan to return home. As already noted the patient is hospice eligible if she so chooses. Palliative-CN HPI - Data of Consult Patient: new to practice Requesting Physician: Destinee Guzmán CNP Primary Care Provider: Shae Martinez CNP - Consult Narrative Palliative Care/Comfort Measures: Palliative care History of present illness: Ms. Gutiérrez is a 76 year old female The patient has a history of chronic back pain for which she takes Lonsdale, so has a huge amount of anxiety especially with regards to her breathing. He takes Ativan for this. And with a new living guidelines for primary care provider has been weaning her off the Ativan. He developed more trouble breathing over the last blood days prior to admission. He was brought in for acute exacerbation of COPD. At that time she was also felt to be withdrawing from her Ativan. She was treated for this as well. Gretchen had concerns about her continuing to get her Lonsdale and Ativan and requested a palliative care consult to discuss their options. At this time the patient is breathing well, has no complaints her pain is under good control. CC: Destinee Guzmán, SILVESTRE Shortness of breath Past Med Surg Social Fam HX - Past Medical History Medical history: COPD, dementia, osteoporosis Psychiatric history: anxiety - Past Surgical History Surgical History: orthopedic, other - Social History Smoking Status: Former smoker Packs per day: 1 PPD - Reports quitting 20 years ago Smokeless Tobacco Status: No Alcohol use: none Drug use: none - Family History Mother Race: Family Member Ethnicity: Non- Living Status: Age at : 79 Cause of : Alzheimer's disease Hx Family Endocrine Disorder: Yes Hx Family Neurologic Disorders: Yes (Alzheimer's disease) Father History Unknown: Yes Race: Family Member Ethnicity: Non- Living Status: Age at : 40 Cause of : Shot by someone Brother Race: Family Member Ethnicity: Non- Living Status: Still Living Sister History Unknown: Yes Race: Family Member Ethnicity: Non- Living Status: Still Living Medications and Allergies Ergocalciferol (VITAMIN D2) [Vitamin D2] 50,000 unit PO SA 07/04/15 [History] Sertraline [Zoloft] 50 mg PO DAILY 07/04/15 [History] Umeclidinium [place] [Incruse Ellipta] 62.5 mcg IH DAILY 07/04/15 [History] Albuterol Sulfate [Albuterol Inhaler] 2 puff IH Q4H PRN 08/20/17 [History] Calcitonin,Branch,Synthetic [Calcitonin-Branch] 1 spray NS DAILY 08/20/17 [ History] Fluticasone Propionate Nasal [Flonase] 50 mcg NS DAILY PRN 08/20/17 [History] Fluticasone/Vilanterol [Breo Ellipta 200-25 Mcg INH] 1 each IH DAILY 08/20/17 [ History] HydrOXYzine 10 mg PO TID PRN 08/20/17 [History] Meloxicam [Mobic] 7.5 mg PO DAILY 08/20/17 [History] Omeprazole [PriLOSEC] 20 mg PO DAILY 08/20/17 [History] Oxygen 4 l NS AD 08/20/17 [History] Theophylline Anhydrous [Guevara-24] 100 mg PO DAILY 08/20/17 [History] HYDROcodone/Acet 5/325 mg [Lonsdale 5-325 mg] 1 tab PO Q6H PRN #8 tablet 08/22/17 [ Rx] 3 Allergy/AdvReac Type Severity Reaction Status Date / Time No Known Allergies Allergy Verified 07/04/15 14:51 - Constitutional Constitutional ROS PAL: no decreased appetite, no frequent falls, no lethargy - EENT Eyes: no discharge, no pain Ears: no ear discharge, no ear pain Ears, nose, mouth, throat: no dysphagia, no epistaxis, no facial pain - Cardiovascular Cardiovascular ROS: no chest pain, no chest pain at rest, no chest pain with activity - Respiratory Respiratory: cough, dyspnea, dyspnea on exertion - Gastrointestinal Gastrointestinal: no constipation, no diarrhea, no nausea, no vomiting - Genitourinary Palliative ROS female: no urinary frequency, no urinary incontinence, no urinary urgency - Musculoskeletal Musculoskeletal ROS IM: back pain, neck pain, no muscle weakness, no myalgias - Integumentary ROS Integumentary: no skin ulcer, no sores - Neurological Neurological ROS: no behavioral changes, no disequilibrium, no dizziness - Psychiatric Psychiatric general PM: no change in appetite, no homicidal ideation, no hopelessness, no suicidal ideation - Endocrine Endocrine IM: other (No history of diabetes or thyroid problems) Palliative Care-Exam - Constitutional Vitals: Temp Pulse Resp BP Pulse Ox 97.7 F 80 16 96/52 95 08/22/17 11:53 08/22/17 11:53 08/22/17 11:53 08/22/17 11:53 08/22/17 11:53 General appearance: Present: no acute distress, thin - Head Head Exam: Present: atraumatic, normal inspection - Eye Eye exam: Present: EOMI, normal appearance - ENT ENT exam: Present: mucous membranes moist - Neck Neck exam: Present: normal inspection - Respiratory Respiratory exam: Present: decreased breath sounds, wheezes (Occasional) - Cardiovascular Cardiovascular exam: Present: RRR - GI/Abdominal Exam GI/Abdominal exam: Present: normal bowel sounds, soft. Absent: tenderness - Extremities Exam Extremities exam: Present: normal inspection. Absent: pedal edema, tenderness - Neurological Exam Neurological exam: Present: alert - Psychiatric Psychiatric exam: Present: normal affect, normal mood. Absent: agitated, anxious - Skin Skin exam: Present: dry, warm Internal Medicine - CN: Reslt - Labs CBC & Chem 7: 08/22/17 03:37 08/22/17 08:54 Labs: Short CBC 08/22/17 Range/Units 03:37 WBC 7.0 D (4.3-11.1) K/mcL Hgb 9.8 L (11.5-15.4) g/dL Hct 32.0 L (35.3-44.9) % Plt Count 154 (140-400) K/mcL Neutrophils # 4.1 (1.6-8.9) K/mcL BMP 08/22/17 08/22/17 03:37 08:54 Sodium 138 Potassium 5.0 H 4.9 H Chloride 103 Carbon Dioxide 33 H BUN 21 H Creatinine 0.81 Glucose 73 Calcium 8.9 - ABG Interpretation ABG results: ABG ABG pH 7.30 pH Units (7.32-7.45) L 08/22/17 10:50 ABG pCO2 68 mmHg (35-45) H 08/22/17 10:50 ABG pO2 89 mmHg (85-104) 08/22/17 10:50 ABG O2 Saturation 95 % (95-98) 08/22/17 10:50 PT/INR, D-dimer PT 11.0 Seconds (9.4-12.1) 08/20/17 13:59 Consult Discharge Plan - Plan Instructions: Hydrocodone/Acetaminophen (By mouth) Referrals: Shae Martinez CNP [Primary Care Provider] - Prescriptions: HYDROcodone/Acet 5/325 mg [Lonsdale 5-325 mg] 1 tab PO Q6H PRN #8 tablet PRN Reason: Pain Palliative Quality Palliative Quality: Screen for Code Status: Yes, Screen for Goals of Care: Yes, Screen for Pain: Yes, If Pain Regimen Started, Initiate Bowel Regimen: Yes, Screen for Nausea/Vomitting: Yes Code Status: 08/20/17 21:46 Resuscitation Status: Active [RES] Routine Comment: Resuscitation Status: Full Code
== END 2017-08-22 13:56 ==
LOC: 3BNU 13:24 → EMEROO 13:24 → 3BNU 18:20
PROVIDERS: ADMIT Nurse Practitioner Family; ATTEND Registered Nurse